=== PATIENT | female | born 1970 | race Native Hawaiian/Other Pacific Islander ===

== ENCOUNTER 2016-07-09 03:29 | Emergency (ER) | payer OTHER ==
[~2016-07-09] VITALS: Ht 167.6 cm; Wt 74.8 kg
[2016-07-09 04:33] LABS: PLATELET COUNT 228 K/uL (152-353)
[2016-07-09 04:41] LABS: SODIUM 140 mmol/L (136-145)
[2016-07-09 05:32] VITALS: BP 131/69; TEMP 98.4
== END 2016-07-09 05:36 | disposition home or self-care (01) ==
LOC: ED 03:29
PROVIDERS: Family Medicine
DX: K52.9 Noninfective gastroenteritis and colitis, unspecified (principal); E86.9 Volume depletion, unspecified; R11.2 Nausea with vomiting, unspecified; R19.7 Diarrhea, unspecified
CPT/HCPCS: 36415; 80053; 85027; 96361; 96374; 96375; 99284; J1885; J2550